=== PATIENT | male | born 1980 | race African-American/Black ===

== ENCOUNTER 2018-06-17 16:15 | Emergency (ER) | payer MEDICAID ==
[~2018-06-17] VITALS: Ht 185.4 cm; Wt 108.0 kg
[2018-06-17] MEDS ORDERED: ACETAMINOPHEN-1 EAC1 ORAL (18:19)
[2018-06-17 18:38] VITALS: BP 118/82
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
--- NOTE | 2018-06-18 10:52 | Diagnostic Imaging Report ---
Indication: Foot pain Comparison: None Findings: 3 views of the left foot were obtained. No acute fractures, malalignment, erosions or periostitis are identified. 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 Soft tissues are unremarkable. Impression: No acute findings
== END 2018-06-17 18:37 | disposition home or self-care (01) ==
LOC: EMR 17:27
DX: S90.32XA Contusion of left foot, initial encounter (principal); W20.8XXA Other cause of strike by thrown, projected or falling object, initial encounter; Y92.89 Other specified places as the place of occurrence of the external cause
CPT/HCPCS: 29515; 99283

== ENCOUNTER 2018-08-26 13:33 | Emergency (ER) | payer MEDICAID ==
[~2018-08-26] VITALS: Ht 185.4 cm; Wt 119.7 kg
[~2018-08-26 13:33] MED LIST: ACETAMINOPHEN-1 EAC1 ORAL
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
[2018-08-26 14:12] VITALS: BP 128/76
[2018-08-26] MEDS: Albuterol ud Inhalation HHN SCH ×5 (14:15→15:11)
[2018-08-26] MEDS ORDERED: Tylenol #3 tab (300mg/30mg) ORAL ONE (14:15)
[2018-08-26] MEDS: Ipratropium 0.02% Inh Soln 2.5ml UD HHN SCH ×5 (14:15→15:11)
[2018-08-26] MEDS ORDERED: AMOXICILLIN500 MG ORAL (15:37)
[2018-08-26] MEDS ORDERED: TYLENOL EXTRA500 MG ORAL (15:37)
[2018-08-26] MEDS ORDERED: PREDNISONE20 MG ORAL (15:37)
[2018-08-26] MEDS ORDERED: PROMETHAZINE-C118 M1 ORAL (15:37)
[2018-08-26] MEDS ORDERED: ALBUTEROL SULF8.5 GM INH (15:37)
--- NOTE | 2018-08-26 15:41 | NUR ---
ED Nurse Note: PT LAYING PEACEFULLY IN BED IN NAD. AOX4. PRESCRIPTIONS AND DISCHARGE PAPERWORK EXPLAINED TO PT. PT VERBALIZES UNDERSTANDING AND DENIES ANY QUESTIONS AT THIS TIME. PRESCRIPTIONS AND DISCHARGE PAPERWORK GIVEN TO PT AND ID WRISTBAND REMOVED. PT WALKED OUT OF ER WITH STEADY GAIT AND ALL BELONGINGS.
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
== END 2018-08-26 15:45 | disposition home or self-care (01) ==
LOC: EMR 14:30
DX: S69.91XA Unspecified injury of right wrist, hand and finger(s), initial encounter (principal); Y04.2XXA Assault by strike against or bumped into by another person, initial encounter; Y92.9 Unspecified place or not applicable; J18.9 Pneumonia, unspecified organism; J45.909 Unspecified asthma, uncomplicated
CPT/HCPCS: 29130; 73130; 94640; 94664; 99284; J7512